=== PATIENT | male | born 1965 | race African-American/Black ===

== ENCOUNTER 2020-04-14 12:38 | Outpatient (CLI) | payer OTHER, SELFPAY ==
--- NOTE | 2020-04-14 12:49 | MR_ITS ---
WS: [id number] MRI LEFT SHOULDER HISTORY: SHOULDER INJURY LEFT ARM COMPARISON: None available. TECHNIQUE: Multiplanar sequences of the shoulder joint are submitted. Mild AC joint hypertrophy. There is an osteophyte from the undersurface of the acromion encroaching u samir the anterior supraspinatus tendon. There is increased T2 signal through the AC ligament. There is a small amount of fluid in the subacromial bursa. No os acromion. Biceps tendon is partially subluxe d from the bicipital groove. There is a small amount of edema surrounding the biceps tendon sheath al ryan the anterior humerus. This is best seen on the sagittal proton density sequence. Severe atrophy of the supraspinatus muscle. There is fatty replacement of the muscle. Proximal to the superior humeral head the tendon is not identified. The distal acromial osteophyte encroaches across the joint space over the humeral head. Suspect chronic supraspinatus tear with mild retraction. Infr aspinatus and subscapularis tendons are intact. No muscle atrophy. No labral tears are identified. The humeral head is high riding. MR/MR shoulder LT wo con* [id number] IMPRESSION: 1. 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 Severe atrophy of the supraspinatus muscle. 2. High riding humeral head abuts the undersurface of the acromion. 3. Abnormal signal surrounding the extracapsular portion of the biceps tendon in the biceps tendon sheath. Favor there is at least a partial tear and possibl e partial subluxation. 4. Mild AC joint hypertrophy and arthritis.
== END 2020-04-14 12:39 | disposition home or self-care (01) ==
LOC: RADSHAW 12:44
PROVIDERS: Visit Provider Orthopaedic Surgery
DX: S49.91XA Unspecified injury of right shoulder and upper arm, initial encounter (principal); X58.XXXA Exposure to other specified factors, initial encounter; M13.812 Other specified arthritis, left shoulder; M75.102 Unspecified rotator cuff tear or rupture of left shoulder, not specified as traumatic
CPT/HCPCS: 73221

== ENCOUNTER 2020-04-19 07:00 | Day surgery (SDC) | payer OTHER, SELFPAY ==
[2020-04-18 12:19] VITALS: BMI 40.0
[2020-04-19] VITALS (11 sets, daily range): BP systolic 131–163; BP diastolic 81–107; PULSE 72–86; RESP 14–18; TEMP 36.4–36.8; O2SAT 93–100
[2020-04-19] MEDS: sodium chloride 0.9% 1,000 ML 30 ML IV (07:36)
--- NOTE | 2020-04-19 07:48 | ANES.PREANE2 ---
Pre-Anesthetic Assessment Pre-Anesthetic Assessment: Height/Weight: Height 1.75 m Weight 122.924 kg Temp Pulse Resp BP Pulse Ox 97.5 F L 74 18 143/86 96 04/19/20 07:21 04/19/20 07:21 04/19/20 07:21 04/19/20 07:21 04/19/20 07:21 Preop Diagnosis: left pec tear Proposed Procedure: Operation Date: 04/19/20 08:30 Proposed Procedures p left pectoral muscle repair S49.90XA [id number](Left) - Ethan Alexander, Familial anesthetic complications: Patient states he was slow to recovery from his outpatient lap fidelina and stayed a few hours. 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 Metabolic: Metabolic: Morbid obesity Anesthetic Plan: ASA status: 2 Anesthesia: General Risk of > 500 ml blood loss (7ml/kg in children): No Meds/Allergies Current Medications: Current Medications Generic Name Dose Route Start Last Admin Trade Name Freq PRN Reason Stop Dose Admin Sodium Chloride 1,000 mls @ 30 ml s/hr 04/19/20 06:45 04/19/20 07:36 Sodium Chloride 0.9% IV 04/20/20 06:44 30 mls/hr .Q24H ROSAURA Administration PFSH Anesthesia PFSH: Social History Smoking and tobacco status: never smoked Second hand smoke exposure: No Alcohol intake: never Data Anesthesia Cardiac Studies: No Data to Display
--- NOTE | 2020-04-19 08:24 | W.PM.OPSUD ---
Surgery/Procedure H&P Update DATE OF PROCEDURE: April 19, 2020 DATE H&P PERFORMED: 04/10/20 H&P UPDATE INFORMATION: I have reviewed H&P completed within last 30 days, I have examined patient prior to procedure and No changes to prior documentation PREOP DIAGNOSIS: left pec tear PLANNED PROCEDURE: Operation Date: 04/19/20 08:30 Proposed Procedures p left pectoral muscle repair S49.90XA [id number](Left) - Ethan Alexander DO
--- NOTE | 2020-04-19 11:04 | PM.OP ---
Operative Report Date of procedure: April 19, 2020 Pre-op Diagnosis: left pec tear Post-op diagnosis: same Procedure Done: Repair left Pec tear Surgeon: Ethan Alexander Anesthesia: General Estimated blood loss (mL): 10 Condition: stable Procedure: Patient is brought to the operative suite placed in the supine position all areas impingement were well-padded. Patient was prepped and draped in normal sterile fashion. Skin was made in the axilla the pec tendon was identified after going through the clavipectoral fascia. The tendon edge and pec muscle were identified adhesions were freed superiorly and inferiorly and then 3 fiber tape stitches were whipstitched through the pec tendon into the muscle a pec button was then fed through the sutures. 3 drill holes were made in the near cortex of the humerus just lateral to the bicep tendon and then each of these pec tendons was sequentially sutured into the drill holes. The pec tendon buttons suture were sequentially tightened. Once is completed then the clavipectoral fascia was reapproximated wounds were irrigated and closed with Vicryl and Monocryl suture and skin glue. Sterile dressing applied and patient transferred to the PACU in stable addition. He is placed in a sling.
[2020-04-19] MEDS: HYDROcodone-acetaminophen 5-325 mg Tablet 1 TAB PO (12:10)
--- NOTE | 2020-04-19 12:31 | ANE.PACU2 ---
Inpatient post-anesthesia follow up: Airway intact: Yes Vital signs: Temperature 98.3 F Pulse Rate 76 Respiratory Rate 18 Blood Pressure 137/81 Pulse Oximetry 96 Oxygen Delivery Me thod Room Air Oxygen Flow Rate 8 Fraction of Inspir ed Oxygen Hydration adequate: Yes Nausea and vomiting: No Pain level: 3 Mental status: Baseline
== END 2020-04-19 12:39 | disposition home or self-care (01) ==
PROVIDERS: Visit Provider Orthopaedic Surgery
PROC: (CPT 24341; principal; 2020-04-19 08:30)
DX: S49.92XA Unspecified injury of left shoulder and upper arm, initial encounter (principal); X58.XXXA Exposure to other specified factors, initial encounter; E66.01 Morbid (severe) obesity due to excess calories; Z68.41 Body mass index [BMI] 40.0-44.9, adult; G47.30 Sleep apnea, unspecified
CPT/HCPCS: 24341; 12345; 96365; C1713; J0131; J0690; J1100; J2250; J2405; J2704; J2710; J2765; J3010; J3490; J7030

== ENCOUNTER 2020-07-14 06:00 | Outpatient (RCR) | payer OTHER, SELFPAY | END 2020-07-16 23:59 | disposition home or self-care (01) | LOC: SPT 06:00 | PROVIDERS: Referring Provider Orthopaedic Surgery; Visit Provider Orthopaedic Surgery | DX: Z47.89 Encounter for other orthopedic aftercare (principal) | CPT/HCPCS: 97161 ==

== ENCOUNTER 2020-07-17 06:00 | Outpatient (RCR) | payer OTHER, SELFPAY | END 2020-08-13 23:59 | disposition home or self-care (01) | LOC: SPT 06:00 | PROVIDERS: Referring Provider Orthopaedic Surgery; Visit Provider Orthopaedic Surgery | DX: Z47.89 Encounter for other orthopedic aftercare (principal) | CPT/HCPCS: 97110; 97140 ==

== ENCOUNTER 2020-08-14 06:00 | Outpatient (RCR) | payer OTHER, SELFPAY | END 2020-09-13 23:59 | disposition home or self-care (01) | LOC: SPT 06:00 | PROVIDERS: Referring Provider Orthopaedic Surgery; Visit Provider Orthopaedic Surgery | DX: Z47.89 Encounter for other orthopedic aftercare (principal) | CPT/HCPCS: 97110; 97140 ==

== ENCOUNTER 2020-09-14 06:00 | Outpatient (RCR) | payer OTHER, SELFPAY | END 2020-09-19 11:15 | disposition home or self-care (01) | LOC: SPT 06:00 | PROVIDERS: Referring Provider Orthopaedic Surgery; Visit Provider Orthopaedic Surgery | DX: Z47.89 Encounter for other orthopedic aftercare (principal) | CPT/HCPCS: 97110 ==

== ENCOUNTER → 2023-07-16 09:31 | Outpatient (BNVA) | payer BC, SELFPAY | PROVIDERS: PCP Family Medicine; Visit Provider Family Medicine | DX: Z68.42 Body mass index [BMI] 45.0-49.9, adult (principal); Z12.5 Encounter for screening for malignant neoplasm of prostate; Z12.11 Encounter for screening for malignant neoplasm of colon; F90.9 Attention-deficit hyperactivity disorder, unspecified type; G47.33 Obstructive sleep apnea (adult) (pediatric) | CPT/HCPCS: 80053; 80061; 83036; 84153; 84439; 84443; 85025 ==

== ENCOUNTER 2024-08-16 02:51 | Outpatient (CLI) | payer BC, SELFPAY ==
[2024-08-16 03:09] LABS: Bilirubin Urine Negative (Negative); Blood Urine Trace (Negative); Glucose Urine UA Negative (Normal); Ketones Urine Trace (Negative); Leukocyte Esterase Urine Negative (Negative); Nitrate Urine Negative (Negative); Protein Urine Negative (Negative); Specific Gravity, Urine 1.024 (1.005-1.030); Urine Appearance Clear (CLEAR); Urine Color Yellow (Yellow); pH Urine 5.5 (5-7)
[2024-08-16 03:35] LABS: Add Urine Culture? No; Bacteria Urine TRACE /hpf; Mucus Urine 2+ /hpf; RBC Urine 0-4 /hpf (0-2); Squamous Epithelial Cell Urine 0-4 /hpf (0-5); WBC Urine 0-4 /hpf (0-5)
[2024-08-16 04:36] LABS: Chlamydia Trachomatis NOT DETECTED; Neisseria Gonorrhea NOT DETECTED
== END 2024-08-16 02:52 | disposition home or self-care (01) ==
PROVIDERS: PCP Family Medicine; Visit Provider Emergency Medicine
DX: Z01.89 Encounter for other specified special examinations (principal)
CPT/HCPCS: 81001; 87491; 87591